=== PATIENT | female | born 2000 | race African-American/Black ===

== ENCOUNTER 2022-03-19 12:52 | Emergency (ER) | payer MEDICAID ==
[~2022-03-19] VITALS: Ht 172.7 cm; Wt 63.6 kg
[2022-03-19 12:52] VITALS: BP 121/68
[2022-03-19] MEDS ORDERED: PRED-554 PO (13:59)
[2022-03-19] MEDS ORDERED: DIPH25CA85 PO (13:59)
[2022-03-19] MEDS ORDERED: DiphenhydrAMINE HCL 50 MG CAPSULE PO ONE (14:00)
[2022-03-19] MEDS ORDERED: PredniSONE 20 MG TABLET PO ONE (14:00)
== END 2022-03-19 14:13 | disposition home or self-care (01) ==
LOC: EMS 12:52
DX: L50.9 Urticaria, unspecified (principal); F32.9 Major depressive disorder, single episode, unspecified
CPT/HCPCS: 99283; J7512